=== PATIENT | female | born 1985 ===

== ENCOUNTER 2023-07-04 10:08 | Outpatient (REF) | payer SELFPAY ==
[2023-07-04 11:28] LABS: MANUAL DIFF FLAG NO
[2023-07-04 11:42] LABS: Basophils Percent Auto 0.3 % (0-2); Eosinophils Absolute Auto 0.2 X10*3/uL (0.0-0.4); Hematocrit 41.1 % (37.0-47.0); Hemoglobin 13.8 g/dl (12.0-16.0); Imm Gran Abs Auto 0.02 X10*3/uL (0.00-0.03); Imm Gran Pct Auto 0.2 % (0.0-0.4); Lymphocytes Absolute Auto 3.2 X10*3/uL (1.2-4.9); Lymphocytes Percent Auto 34.6 % (20-40); Mean Corpuscular HGB Conc 33.6 g/dl (31.0-35.0); Mean Corpuscular Hemoglobin 29.4 pg (27.0-33.0); Mean Corpuscular Volume 87.6 fL (80.0-98.0); Mean Platelet Volume 10.6 fL (9.4-12.3); Monocytes Absolute Auto 0.7 X10*3/uL (0.1-1.2); Monocytes Percent Auto 8.1 % (2-11); Neutrophils Percent Auto 54.8 % (45-73); Platelet Count 265 X10*3/uL (160-400); Red Blood Count 4.69 X10*6/uL (4.20-5.50); Red Cell Distribution Width 12.5 % (11.0-16.0); White Blood Count 9.1 X10*3/uL (4.8-10.8)
[2023-07-04 12:00] LABS: Alanine Aminotransferase 16 U/L (0-31); Albumin Level 4.3 g/dL (3.5-5.0); Alkaline Phosphatase 70 U/L (39-117); Anion Gap 10 (12-20); Aspartate Amino Transferase 13 U/L (5-31); Bilirubin Total 0.4 mg/dL (0.0-1.0); Blood Urea Nitrogen 8 mg/dL (9-16); Calcium 9.1 mg/dL (8.4-10.2); Carbon Dioxide 24 mmol/L (22-29); Chloride 109 mmol/L (96-108); Cholesterol 151 mg/dL (<200); Estimated Glomerular Filt Rate > 60; Glucose Random 95 mg/dL (60-115); HDL Cholesterol 55 mg/dL (>40); LDL Cholesterol Calculated 86 mg/dL (<100); Potassium 4.2 mmol/L (3.3-5.1); Sodium 139 mmol/L (135-145); Total Protein 7.5 g/dL (6.5-8.0); Triglycerides 53 mg/dL (<150)
[2023-07-04 12:23] LABS: HIV AB/AG Nonreactive (Nonreactive); HIV Num 1 0.04 S/CO (0.00-0.99); ~HepC Num1 1.86 S/CO (0.00-0.79); ~Hepatitis C Antibody Reactive (Nonreactive)
== END 2023-07-04 10:09 | disposition home or self-care (01) ==
LOC: HO.HHCL 10:08
PROVIDERS: Visit Provider Internal Medicine Geriatric Medicine
DX: Z00.00 Encounter for general adult medical examination without abnormal findings (principal); Z11.4 Encounter for screening for human immunodeficiency virus [HIV]; Z13.6 Encounter for screening for cardiovascular disorders
CPT/HCPCS: 36415; 80053; 80061; 85025; 86803; 87389

== ENCOUNTER 2023-07-09 15:11 | Outpatient (REF) | payer SELFPAY ==
[2023-07-10 04:19] LABS: ~HepC Num1 1.28 S/CO (0.00-0.79); ~Hepatitis C Antibody Reactive (Nonreactive)
[2023-07-12 11:28] LABS: HCV Log PCR <1.18 NOT DETECTED Log IU/mL (NOT DETECTED); HepC Viral Load <15 NOT DETECTED IU/mL (NOT DETECTED)
== END 2023-07-09 15:12 | disposition home or self-care (01) ==
LOC: HO.HHCL 15:11
PROVIDERS: Visit Provider Internal Medicine Geriatric Medicine
DX: R76.8 Other specified abnormal immunological findings in serum (principal)
CPT/HCPCS: 36415; 86803; 87522

== ENCOUNTER 2024-08-20 09:47 | Outpatient (REF) | payer MEDICAID, SELFPAY ==
--- OUTSIDE RECORDS SUMMARY | 2024-08-20 11:14 | XMS_ITS | Clinical Summary ---
Author Organization [employer] Address [address] [facility] [address] [place] [address] Care Team Providers Care Powder Compounder Name Role Phone Name, Brain CALVO Primary Care Provider [phone] Allergies No known active allergies Medications No known medications Active Problems Problem Noted Date Diagnosed Date IUD (intrauterine device) in place 07/04/2023 Hepatitis C antibody positive in blood Gingivitis 06/04/2023 Fractured dental worship with loss of materi al 06/04/2023 Dental plaque 06/13/2022 Missing teeth, acquired 06/13/2022 Dental caries 05/30/2022 Encounters Date Type Department Care Team Description 08/20/2024 9:15 AM EDT Office Visit [address] [address] Brain Sauceda MD Abnormal vaginal bleeding (Primary Dx); Pelvic pain; Screening for diabetes mellitus; Screening for cholesterol level 08/20/2024 Travel 08/19/[address] [address] Ashanti Antoine MA Chart Prep 08/11/2024 Patient Outreach [address] [address] Brain Sauceda MD Pre-visit Planning (SDOH screening negative and tobacco screening negative) 05/22/[address] [phone] Jennifer Issa MA june recalls from Last 3 Months Immunizations Immunization Administration Dates Next Due Hep B, adult 01/07/2024,08/13/2023,07/04/2023 Moderna Covid-19 Vaccine 12+ 07/12/2020 Tdap 01/18/2022 Family History Medical History Relation Name Comments Diabetes Father Diabetes Mother Relation Name Status Comments Father Mother Social History Tobacco Use Types Packs/Day Years Used Date Smoking Tobacco: Never Passive Smoke Exposure: Never Smokeless Tobacco: Never Tobacco Cessation:Counseling Given: Not Answered Alcohol Use Standard Drinks/Week Comments Never 0 (1 standard drink = 0.6 oz pur e alcohol) Depression Answer Date Recorded Patient Health Questionnaire-9 Score 0 08/20/2024 Patient Health Questionnaire-9 Score 0 08/20/2024 Last PHQ-9: Questionnaire Data Not on file 0 08/20/2024 Housing Stability Answer Date Recorded What is your housing situation today? I have kelly dent 08/11/[address] you li ve. Do you have problems with any of the following? None of the above 08/11/2024 Food Insecurity Answer Date Recorded Within the past 12 months, y ou worried that your food would run out before you got money to buy more: Never True 08/11/2024 Within the past 12 months,th e food you bought just didn't last and you didn't have enough money to get more: Never True Transportation Answer Date Recorded In the past 12 months, has l ack of transportation kept you from medical appts, meetings, work or from getting things needed for daily living? No 08/11/2024 Utilities Answer Date Recorded In the past 12 months, has t he electric, gas, oil or water company threatened to shut off services in your home? No 08/11/2024 Depression Answer Date Recorded Patient Health Questionnaire-2 Score 0 08/20/2024 Internet Access Answer Date Recorded Internet Access Q1 Yes 08/11/2024 Internet Access Q2 Not on file 08/11/2024 Comments Unknown Sex and Gender Information Value Date Recorded Sex Assigned at Female 01/15/2022 10:25 AM EDT Legal Sex Female 10:25 AM EDT Gender Identity Female 01/15/2022 10:25 AM EDT Sexual Orientation Straight 01/15/2022 10 :25 AM EDT Last Filed Vital Signs Vital Sign Reading Time Taken Comments Blood Pressure 124/78 08/20/2024 9:12 AM EDT Pulse 61 08/20/2024 9:12 AM EDT Temperature 36.8 ??C (98.3 ??F) 08/20/2024 9:12 AM ED T Respiratory Rate 16 08/20/2024 9:12 AM EDT Oxygen Saturation 97% 08/20/2024 9:12 AM EDT Inhaled Oxygen Concentration - - Weight 56.4 kg (124 lb 6 oz) 08/20/2024 9:12 AM EDT Height 149.9 cm (4' 11 ) 08/20/2024 9:12 AM EDT Body Mass Index 25.12 08/20/2024 9:12 AM EDT Plan of Treatment Health Maintenance Due Date Last Done Comments Family Planning (PISQ) 2001 Dental X-Ray: Full Mouth 09/18/2020 09/17/2017 Dental Oral Exam 12/01/2022 05/30/2022 COVID-19 Vaccine (2023-2 5 season) 2023 07/21/2020, 07/12/2020 Dental Prophylaxis 12/06/2023 06/04/2023, 06/13/2022 Dental X-Ray: Bitewings 06/04/2024 06/04/19 24, 05/30/2022 Influenza Vaccine (Season Ended) 2024 Cervical Cancer Screening 05/17/2025 HPV/Cotest 05/17/2025 05/17/2020 Pap Smear 05/17/2025 05/17/2020 SDOH Screening 08/11/2025 08/11/2024 Alcohol/Substance Use Screening 08/20/2025 08/20/2024 Depression Screening 08/20/2025 08/20/2024, 08/20/2024 Disability Screening 08/20/2025 08/20/2024 Tobacco Screening 08/20/2025 08/20/2024 DTaP/Tdap/Td Vaccines (2 - T d or Tdap) 01/19/2032 01/18/2022 Zoster Vaccines (1 of 2) 01/25/2036 RSV Patients and Patients Aged 60 years or older (1 - 1-dose 75+ series) 2061 HIV Screening Completed 07/04/2023 Hepatitis C Screening Completed 07/09/2023 , 07/09/2023, 07/04/2023 Hepatitis B Vaccines Completed 01/07/2024, 08/13/2023, 07/04/2023 HIB Vaccines Aged Out No longer eligi ble based on patient's age to complete this topic HPV Vaccines Aged Out No longer eligi ble based on patient's age to complete this topic Hepatitis A Vaccines Aged Out No long er eligible based on patient's age to complete this topic IPV Vaccines Aged Out No longer eligi ble based on patient's age to complete this topic Meningococcal B Vaccine Aged Out No l onger eligible based on patient's age to complete this topic Meningococcal Vaccine Aged Out No eze alexis eligible based on patient's age to complete this topic Pneumococcal Vaccine: Pediatrics (0 to 5 Years) and At-Risk Patients (6 to 49) Years) Aged Out No longer eligible b ased on patient's age to complete this topic RSV under 20 months Aged Out No longe r eligible based on patient's age to complete this topic Rotavirus Vaccines Aged Out No longer eligible based on patient's age to complete this topic Procedures Procedure Name Priority Date/Time Associated Diagnosis Comments HEPATITIS C AB W/REFL TO HCV RNA, QN, PCR Routine 07/09/2023 3:13 PM EDT Hepatitis C antibody positive in blood HIV 1/2 ANTIGEN/ANTIBODY, FOURTH GENERATION W/RFL Routine 07/04/2023 10:09 AM EDT PE (physical exam), routine PROPHYLAXIS - ADULT Routine 06/04/2023 3 :00 PM EDT Gingivitis Dental plaque BITEWINGS - 4 RADIOGRAPHIC IMAGES Routine 06/04/2023 3:00 PM EDT Gingivitis Dental plaque PERIODIC ORAL EVALUATION - ESTABLISHED PATIENT Routine 05/30/2022 9:30 AM EDT HPV MRNA E6/E7 Routine 05/17/2020 2:49 PM EST THINPREP PAP Routine 05/17/2020 2:49 PM EST from Last 3 Months or Most Recently Relevant to Health Maintenance Results * (ABNORMAL) Hepatitis C Antibody with Reflex to HCV, RNA, Quantitative, Real- Time PCR (07/09/2023 3:13 PM EDT) Hepatitis C Antibody Reactive( A) Nonreactive [facility] Comment:Presumptive evidence of antibodies to HCV. Blood Venous blood specimen / Unknown 07/09/2023 3:13 PM EDT 07/09/2023 5:35 PM EDT us Brain Sauceda MD LAB BLOOD ORDERABLES Final Resul t Performing Organization Address [facility] Co de Phone Number [facility] [address] [place] [address] [phone] * HIV-1/2 Antigen and Antibodies, Fourth Generation, with Reflexes (07/04/2023 10:09 AM EDT) HIV AB/AG Nonreactive Nonreactive [facility] Comment:HIV-1 p24 Ag and/or HIV-1/HIV-2 Ab not detected.A test result that is nonreactive does not exclude thepossibility of exposure to or infection with HIV-1 and/orHIV-2. Nonreactive results in this assay for individualswith prior exposure to HIV-1 and/or HIV-2 may be due toantigen and antibody levels that are below the limit ofdetection of this assay.The [employer] HIV Ag/Ab Combo assay result andsupplemental assay results should be interpreted inconjunction with the patient's clinical presentation,history and other laboratory results. If the results areinconsistent with clinical evidence, additional testing issuggested to confirm the result. Blood Venous blood specimen / Unknown 07/04/2023 10:09 AM EDT 07/04/2023 11:23 AM EDT us Brain Sauceda MD LAB BLOOD ORDERABLES Final Resul t Performing Organization Address [facility]/ZIP Co de Phone Number [facility] [address] [place] [address] [phone] * THINPREP PAP (05/17/2020 2:49 PM EST) Clinical Information: None given [facility] COMMENT SEE COMMENT [facility] Comment: EXPLANATORY NOTE: ? The Pap is a screening test for cervical cancer. It is ?? not a diagnostic test and is subject to false negative ?? and false positive results. It is most reliable when a ?? satisfactory sample, regularly obtained, is submitted ?? with relevant clinical findings and history, and when ?? the Pap result is evaluated along with historic and ?? current clinical information. ?? Crab Steamer : SEE COMMENT [facility] Comment: DMM, CT(ASCP) CT screening location: [address] ??[id number] Interpretation/R esult: Negative for intraepithelial lesion or malignancy. [facility] LMP: 05/10/2020 [facility] Prev. BX: NONE GIVEN [facility] Prev. PAP: NONE GIVEN [facility] SOURCE: None given [facility] Statement Of Adequacy: SEE COMMENT [facility] Comment: Satisfactory for evaluation. Endocervical/transformation zone component present. 05/17/2020 2:49 PM EST Radhika ALFARO LAB PATHOLOGY ORDERABLES Final Result Performing Organization Address City/State/[facility] Co de Phone Number [facility] [address] * HPV mRNA E6/E7 (05/17/2020 2:49 PM EST) HPV nRNA E6/E7 Not Detected Not Detected [facility] Comment: Methodology: Gear Room Keeper-Mediated Amplification This assay detects E6/E7 viral messenger RNA (mRNA) from 14 high-risk HPV types (16,18,31,33,35,39,45,51,52,56,58,59,66,68). ? The analytical performance characteristics of this assay have been determined by [employer]. The modifications have not been cleared or approved by the FDA. This assay has been validated pursuant to the CLIA regulations and is used for clinical purposes. ?? For additional information, please refer to http://education.[employer]/faq/HAS727c3 (This link if provided for information/ educational purposes only.) 05/17/2020 2:49 PM EST Radhika Campbell [facility] LAB BLOOD ORDERABLES Ria mays Result [facility] [address] from Last 3 Months or Most Recently Relevant to Health Maintenance Insurance HSN PARTIAL DENTAL - HSN PARTIAL (MEDICAID) Care Teams Powder Compounder Relationship Specialty Start Date End Date Name, MD Brain [address] [place] [address] PCP - General Family Medicine 04/28/20
[2024-08-20 11:41] LABS: MANUAL DIFF FLAG NO
[2024-08-20 11:45] LABS: Basophils Absolute Auto 0.1 X10*3/uL (0.0-0.2); Basophils Percent Auto 0.7 % (0-2); Eosinophils Absolute Auto 0.2 X10*3/uL (0.0-0.4); Eosinophils Percent Auto 3.2 % (0-4); Hematocrit 42.8 % (37.0-47.0); Imm Gran Abs Auto 0.03 X10*3/uL (0.00-0.03); Imm Gran Pct Auto 0.4 % (0.0-0.4); Lymphocytes Absolute Auto 2.6 X10*3/uL (1.2-4.9); Lymphocytes Percent Auto 36.4 % (20-40); Mean Corpuscular HGB Conc 32.7 g/dl (31.0-35.0); Mean Corpuscular Hemoglobin 29.2 pg (27.0-33.0); Mean Corpuscular Volume 89.2 fL (80.0-98.0); Mean Platelet Volume 10.6 fL (9.4-12.3); Monocytes Absolute Auto 0.6 X10*3/uL (0.1-1.2); Monocytes Percent Auto 7.9 % (2-11); Neutrophils Absolute Auto 3.7 x10*3/uL (2.0-8.3); Neutrophils Percent Auto 51.4 % (45-73); Platelet Count 310 X10*3/uL (160-400); Red Cell Distribution Width 12.8 % (11.0-16.0); White Blood Count 7.2 X10*3/uL (4.8-10.8)
[2024-08-20 12:47] LABS: Alanine Aminotransferase 19 U/L (0-31); Albumin Level 4.5 g/dL (3.5-5.0); Alkaline Phosphatase 82 U/L (39-117); Anion Gap 12 (12-20); Aspartate Amino Transferase 19 U/L (5-31); Bilirubin Total 0.4 mg/dL (0.0-1.0); Blood Urea Nitrogen 7 mg/dL (9-16); Calcium 9.6 mg/dL (8.4-10.2); Carbon Dioxide 25 mmol/L (22-29); Chloride 110 mmol/L (96-108); Cholesterol 164 mg/dL (<200); Estimated Glomerular Filt Rate > 60; Glucose Random 97 mg/dL (60-115); HDL Cholesterol 59 mg/dL (>40); LDL Cholesterol Calculated 94 mg/dL (<100); Potassium 4.8 mmol/L (3.3-5.1); Sodium 142 mmol/L (135-145); Total Protein 7.7 g/dL (6.5-8.0); Triglycerides 59 mg/dL (<150)
[2024-08-20 13:54] LABS: CT PCR NOT DETECTED (Not Detect.); NG PCR NOT DETECTED (Not Detect.)
[2024-08-20 18:15] LABS: Bacterial Vaginosis PCR POSITIVE (Negative); Candida Group PCR DETECTED (Not Detect); Candida glab krusei PCR NOT DETECTED (Not Detect); Trichomonas vaginalis PCR NOT DETECTED (Not Detect)
== END 2024-08-20 09:48 | disposition home or self-care (01) ==
LOC: HO.HHCL 09:47
PROVIDERS: Visit Provider Internal Medicine Geriatric Medicine
DX: N93.9 Abnormal uterine and vaginal bleeding, unspecified (principal); R10.2 Pelvic and perineal pain; Z13.1 Encounter for screening for diabetes mellitus; Z13.220 Encounter for screening for lipoid disorders
CPT/HCPCS: 80053; 80061; 81515; 85025; 87491; 87591